=== PATIENT | female | born 1950 | race Caucasian/White ===

== ENCOUNTER → 2018-11-02 | Day surgery (SDC) | payer OTHER ==
[~2018-11-02] MED LIST: PAXIL PO; PLAQUENIL PO; SYNTH PO; XANAX0.25 MG PO; ZANTAC300 MG PO; [UNRECOGNIZED DRUG - OTHER] PO
== END | disposition home or self-care (01) ==
LOC: ADM 10-27 08:00 → CIR.AMB 05:29
DX: S52.501A Unspecified fracture of the lower end of right radius, initial encounter for closed fracture (principal)
CPT/HCPCS: 25280; 25609; 26118; C1776